=== PATIENT | male | born 1940 | race Caucasian/White ===

== ENCOUNTER 2017-07-21 05:28 | Inpatient (IN) | payer MEDICARE, BC ==
[~2017-07-21] VITALS: Ht 177.8 cm; Wt 90.7 kg
[~2017-07-21 05:28] MED LIST: FOLI-17 PO; HYDR200T PO; MELO15TA24 PO; METH2.5T PO; OMEP-110 PO; SIMV20TA3 PO; TOFA11TA PO; medical marijuana INH
[2017-07-21] MEDS ORDERED: VANCOMYCIN PER PHARMACY MC STA (06:00)
[2017-07-21] MEDS ORDERED: OxyconTIN ER 10 MG TAB.ER PO STA (06:13)
[2017-07-21] MEDS ORDERED: ACETAMINOPHEN 500 MG TABLET PO STA (06:13)
[2017-07-21] MEDS ORDERED: GABAPENTIN 300 MG CAPSULE PO STA (06:13)
[2017-07-21] MEDS ORDERED: VANCOMYCIN 1,700 MG in SODIUM CHLORIDE 0.9% 250 ML IV ONE (06:30)
[2017-07-21] MEDS ORDERED: KETOROLAC 60 MG/2 ML ONE (06:39)
[2017-07-21] MEDS ORDERED: TRANEXAMIC ACID 100 MG/ML, 10ML ONE ×4 (06:39→06:40)
[2017-07-21] MEDS ORDERED: MORPHINE SULFATE 4 MG/ML, 1ML ONE (06:40)
[2017-07-21] MEDS ORDERED: ROPIvacaine/PF 0.2%, 20 ML ONE (06:40)
[2017-07-21] MEDS ORDERED: SODIUM CHLORIDE 0.9% 50 ML ONE (06:41)
[2017-07-21] MEDS ORDERED: EPINEPHRINE 1 MG/ML, 1ML ONE ×2 (06:41→07:01)
[2017-07-21] MEDS ORDERED: BUPIVACAINE/PF 0.25% ONE (07:01)
[2017-07-21] MEDS ORDERED: FENTANYL PF 100 MCG/2ML ONE (07:03)
[2017-07-21] MEDS ORDERED: MIDAZOLAM 1 MG/ML, 2ML ONE (07:03)
[2017-07-21] MEDS ORDERED: PROPOFOL 50 ML ONE (07:05)
[2017-07-21] MEDS ORDERED: LACTATED RINGERS 1,000 ML IV SCH (07:18)
[2017-07-21] MEDS ORDERED: PHENYLEPHRINE 10 MG/ML ONE (07:22)
[2017-07-21] MEDS ORDERED: ACETAMINOPHEN 650 MG/20.3 ML UDC PO PRN (07:30)
[2017-07-21] MEDS ORDERED: SENNA/DOCUSATE TABLET PO PRN (07:30)
[2017-07-21] MEDS ORDERED: HYDROmorphone 1 MG/ML, 1ML IV PRN ×2 (07:30→08:30)
[2017-07-21] MEDS ORDERED: MAGNESIUM HYDROXIDE 8%, 30ML UDC PO PRN (07:30)
[2017-07-21] MEDS ORDERED: BISACODYL 10 MG SUPP PR PRN (07:30)
[2017-07-21] MEDS ORDERED: DIPHENHYDRAMINE 50 MG CAPSULE PO PRN (07:30)
[2017-07-21] MEDS ORDERED: ONDANSETRON 4 MG TABLET PO PRN (07:30)
[2017-07-21] MEDS ORDERED: ONDANSETRON 2MG/ML, 2ML IV PRN (07:30)
[2017-07-21] MEDS ORDERED: DIAZEPAM 5 MG TABLET PO PRN (07:30)
[2017-07-21] MEDS ORDERED: CEFAZOLIN 1,000 MG ONE ×2 (07:41)
[2017-07-21] MEDS ORDERED: KETAMINE 10 MG/ML, 20ML ONE (07:46)
[2017-07-21] MEDS ORDERED: FENTANYL PF 100 MCG/2ML IV PRN (08:30)
[2017-07-21] MEDS ORDERED: ONDANSETRON 2MG/ML, 2ML IVPush PRN (08:30)
[2017-07-21] MEDS ORDERED: hydrALAzine 20 MG/ML, 1ML IV PRN (08:30)
[2017-07-21] MEDS ORDERED: ACETAMINOPHEN 325 MG TABLET PO PRN (08:30)
[2017-07-21] MEDS ORDERED: PROMETHAZINE 25 MG/ML, 1ML IV PRN (08:30)
[2017-07-21] MEDS ORDERED: MEPERIDINE/PF 25MG/0.5ML IVPush PRN (08:30)
[2017-07-21] MEDS ORDERED: LABETALOL 5MG/ML, 20ML IV PRN (08:30)
[2017-07-21] MEDS ORDERED: OXYcodone 5 MG/5 ML ORAL.SOL UDC PO PRN (08:30)
[2017-07-21] MEDS ORDERED: ONDANSETRON 2MG/ML, 2ML ONE (08:34)
[2017-07-21] MEDS ORDERED: PROPOFOL 10 MG/ML, 20ML ONE (09:03)
[2017-07-21] MEDS ORDERED: ACETAMINOPHEN 650 MG/20.3 ML UDC ONE (09:57)
[2017-07-21] MEDS ORDERED: OXYcodone 5 MG/5 ML ORAL.SOL UDC ONE (09:57)
[2017-07-21] MEDS ORDERED: TRANEXAMIC ACID 1,000 MG in SODIUM CHLORIDE 0.9% 100 ML IVPB ONE (09:59)
[2017-07-21] MEDS: DOCUSATE 100 MG CAPSULE PO SCH ×2 (11:56→21:00)
[2017-07-21] MEDS: TAMSULOSIN 0.4 MG CAP.ER.24H PO SCH (11:56)
[2017-07-21] MEDS: D5%-0.45% NACL 1,000 ML IV SCH ×2 (11:57→22:28)
[2017-07-21 13:18] VITALS: BP 148/77
[2017-07-21] MEDS: OXYcodone IR 5MG TABLET PO PRN ×3 (14:25→22:29)
[2017-07-21] MEDS: CEFAZOLIN PMX 1GM/50ML 50 ML IVPB SCH ×2 (16:10→23:49)
[2017-07-21] MEDS: ASPIRIN 81 MG TABLET EC PO SCH (18:33)
[2017-07-21 19:46] VITALS: BP 134/69
[2017-07-21] MEDS ORDERED: SIMVASTATIN 20 MG TABLET PO SCH (21:00)
[2017-07-21] MEDS: ALUMINUM/MAG/SIMETHICONE 30 ML UDC PO PRN (22:28)
[2017-07-22] MEDS: ALUMINUM/MAG/SIMETHICONE 30 ML UDC PO PRN (02:43)
[2017-07-22 02:50] VITALS: BP 121/55
[2017-07-22] MEDS: ASPIRIN 81 MG TABLET EC PO SCH (05:46)
[2017-07-22 05:47] LABS: HEMATOCRIT 31.8 % (39.2-51.8); HEMOGLOBIN 10.8 g/dL (13.7-18.0)
[2017-07-22] MEDS ORDERED: DEXAMETHASONE 4 MG/ML, 1ML IVPush SCH (06:00)
[2017-07-22 06:40] VITALS: BP 118/75
[2017-07-22] MEDS ORDERED: OMEPRAZOLE 20 MG CAPSULE.DR PO SCH (07:30)
[2017-07-22] MEDS ORDERED: KETOROLAC 30 MG/1 ML IV SCH (07:30)
[2017-07-22] MEDS: DOCUSATE 100 MG CAPSULE PO SCH (08:11)
[2017-07-22] MEDS: TAMSULOSIN 0.4 MG CAP.ER.24H PO SCH (08:11)
[2017-07-22] MEDS: D5%-0.45% NACL 1,000 ML IV SCH (08:11)
[2017-07-22] MEDS ORDERED: FOLIC ACID 1 MG TABLET PO SCH (09:00)
[2017-07-22 12:00] VITALS: BP 125/63
[2017-07-22] MEDS: OXYcodone IR 5MG TABLET PO PRN (12:36)
[2017-07-22] MEDS ORDERED: ASPI-621 PO (13:00)
[2017-07-22] MEDS ORDERED: DOCU-131 PO (13:00)
[2017-07-22] MEDS ORDERED: TRAM50TA2 PO (13:01)
[2017-07-22] MEDS ORDERED: ONDA4TAB7 PO (13:01)
[2017-07-22] MEDS ORDERED: DIAZ5TAB PO (13:02)
[2017-07-22] MEDS ORDERED: CELE200C PO (13:02)
[2017-07-22] MEDS ORDERED: OXYC5CAP2 PO (13:03)
== END 2017-07-22 13:30 | disposition home or self-care (01) | DRG 470 ==
LOC: ORIP 05:28 → 4NOR 10:56 → DCLOUNGE 07-22 12:55
PROVIDERS: ADMIT Orthopaedic Surgery; ATTEND Orthopaedic Surgery
PROC: 0SRC069 Replacement of Right Knee Joint with Oxidized Zirconium on Polyethylene Synthetic Substitute, Cemented, Open Approach (ICD-10-PCS; principal; 2017-07-21 07:30)
DX: M17.11 Unilateral primary osteoarthritis, right knee (principal); M32.9 Systemic lupus erythematosus, unspecified; M06.9 Rheumatoid arthritis, unspecified
CPT/HCPCS: 36415; 85014; 85018; C1713; J0171; J0690; J1100; J1170; J1885; J2250; J2405; J2704; J2795; J3010; J3370; J3490; C1776; J2370; J7050; J7120